=== PATIENT | male | born 1965 | race Hispanic/Latino ===

== ENCOUNTER 2021-05-05 10:00 | Emergency (ER) | payer MEDICARE ==
--- NOTE | 2021-05-05 10:56 | Emergency Department Report ---
HPI - General Time Seen by Provider: 05/05/21 10:40 - HPI HPI: This is a 56-year-old male who presents to the emergency department via EMS from [facility] with a complaint of right hip and knee pain after a fall this morning. The patient says that his knee "gave out" and he fell directly onto his right knee. He says "I think it pushed my femur bone up into my pelvis." The patient complains of mild pain to the right knee but significant pain to the right hip. The hip pain is 9 out of 10 in intensity. It worsens with movement or bearing of weight. He denies any swelling, laceration, rash or lesions. He has a history of osteoarthritis, coronary artery disease with cardiac stents, and previous PE/DVT on anticoagulation. He was given some Tylenol for his symptoms without any relief. ED Review of Systems ROS: Stated complaint: RT HIP AND KNEE PAIN/FROM [facility] Other details as noted in HPI Comment: All other systems reviewed and negative Constitutional: denies: chills, fever Eyes: denies: eye pain, vision change ENT: denies: ear pain, throat pain Respiratory: denies: cough, shortness of breath Cardiovascular: denies: chest pain, palpitations Gastrointestinal: denies: abdominal pain, vomiting Genitourinary: denies: dysuria, discharge Musculoskeletal: arthralgia. denies: back pain, joint swelling Skin: denies: rash, lesions Neurological: denies: numbness, paresthesias Physical Exam - Physical Exam Physical Exam: GENERAL: The patient is well-developed well-nourished. HENT: Normocephalic. Atraumatic. Patient has moist mucous membranes. EYES: Extraocular motions are intact. NECK: Supple. Trachea is midline. CHEST/LUNGS: Clear to auscultation. There is no respiratory distress noted. HEART/CARDIOVASCULAR: Regular. There is no tachycardia. There is no murmur. ABDOMEN: Abdomen is soft, nontender. SKIN: Skin is warm and dry. NEURO: The patient is awake, alert, and oriented. The patient is cooperative. The patient has no focal neurologic deficits. Normal speech. MUSCULOSKELETAL: There is some mild tenderness to palpation of the right knee but no labs deformity. Negative anterior and posterior drawer test. No laxity with valgus or varus stress of the affected right knee. There is reproducible right hip pain to palpation. Hip pain is also increased with any movement of the right lower extremity. BACK: No midline thoracic or lumbar tenderness to palpation. . ED Medical Decision Making - Radiology Data Radiology results: image reviewed interpreted by me: X-ray of the right knee, right hip and pelvis does not show any fractures, dislocation, or any acute process. No signs of osteomyelitis. - Medical Decision Making This patient presents from his psychiatric facility with a complaint of mild right knee pain and significant right hip pain after a fall. The patient fell onto his right right knee. He denies hitting his head or any loss of consciousness. On examination there is some reproducible tenderness to palpation but otherwise no swelling, rash, lesion, deformity. He appears neurovascularly intact. X-rays were done of the right knee, right hip and pelvis that did not show any fractures, dislocations, signs of osteomyelitis, or any acute processes. Patient appears safe for discharge home at this time. He will go back to a psychiatric facility but has been given outpatient referral for an orthopedist and has been given crutches to assist with weightbearing. Critical Care Time: No Critical care attestation.: If time is entered above; I have spent that time in minutes in the direct care of this critically ill patient, excluding procedure time. ED Disposition Clinical Impression: Right hip pain Fall Qualifiers: Encounter type: initial encounter Qualified Code(s): W19.XXXA - Unspecified fall, initial encounter Right knee pain Qualifiers: Chronicity: acute Qualified Code(s): M25.561 - Pain in right knee Osteoarthritis of hip Qualifiers: Osteoarthritis type: unspecified Laterality: right Qualified Code(s): M16.11 - Unilateral primary osteoarthritis, right hip Disposition: TO HOME OR SELFCARE Is pt being admited?: No Condition: Stable Instructions: Hip Pain, Osteoarthritis, Joint Pain Additional Instructions: Please follow-up with a primary care physician when possible. Use the crutches for nonweightbearing or decreased weightbearing to the right lower extremity as needed. I have given you a referral for a local orthopedist, Dr. Acevedo, to follow-up once you are done at [facility]. Return to the emergency department with any worsening of your symptoms, new or concerning symptoms not addressed during this current emergency department visit, or with any acute distress. Referrals: PRIMARY CARE, [Primary Care Provider] - 2-3 Days COLE ACEVEDO MD [Staff Physician] - 2-3 Days Time of Disposition: 12:07
--- NOTE | 2021-05-05 11:44 | XRay Report ---
RIGHT HIP 2 VIEWS INDICATION: Right hip pain, fall. COMPARISON: None. IMPRESSION: Severe end-stage osteoarthritic changes are identified at the right hip. Near complete l oss of joint space is present. No fracture, bone lesion or osteonecrosis is appreciated. RIGHT KNEE 3 VIEWS INDICATION: right knee pain, fall. COMPARISON: None. IMPRESSION: No acute osseous or soft tissue abnormality. No significant DJD. Signer Name: Claudio Greco Jr, MD Signed: 05/05/2021 11:39 AM Workstation Name: [id number]
[2021-05-05] MEDS ORDERED: CYCLOBENZAPRINE 10 MG TAB PO ONE (12:00)
[2021-05-05 16:35] VITALS: BP 124/82
== END 2021-05-05 15:33 | disposition home or self-care (01) ==
LOC: ED 10:00
DX: M16.11 Unilateral primary osteoarthritis, right hip (principal); M25.561 Pain in right knee; Z88.0 Allergy status to penicillin; Z88.8 Allergy status to other drugs, medicaments and biological substances; W19.XXXA Unspecified fall, initial encounter; Y93.89 Activity, other specified; Y92.89 Other specified places as the place of occurrence of the external cause; Y99.8 Other external cause status